=== PATIENT | female | born 1995 | race American Indian/Alaskan Native ===

== ENCOUNTER 2021-10-23 08:08 | Emergency (ER) | payer SELFPAY ==
[2021-10-23 08:12] VITALS: BP 128/38
--- NOTE | 2021-10-23 10:07 | Emergency Department Report ---
ED General Adult HPI - General Chief complaint: Upper Respiratory Infection Stated complaint: COUGH Time Seen by Provider: 10/23/21 09:59 Source: patient Mode of arrival: Ambulatory Limitations: No Limitations - History of Present Illness Initial comments: 36-year-old -Turk[place] female presents with complaints of cough x1 week. She states the cough is productive of yellow sputum, but denies any hemoptysis or shortness of breath. She also denies any chest pain and states she is vaccinated against COVID-19. No recent long travel, leg pain/swelling, hormone use, or history of DVT/PE/cancer. Patient states symptoms improved with Delsym. No loss of taste or smell per patient. She also denies any other past medical history ED Review of Systems ROS: Stated complaint: COUGH Other details as noted in HPI Constitutional: denies: chills, diaphoresis, fever, malaise Respiratory: cough. denies: shortness of breath Cardiovascular: denies: chest pain Gastrointestinal: denies: vomiting Neurological: denies: headache ED Physical Exam - General Limitations: No Limitations General appearance: alert, in no apparent distress - Head Head exam: Present: atraumatic, normocephalic - Eye Eye exam: Present: normal appearance. Absent: scleral icterus - Respiratory Respiratory exam: Present: normal lung sounds bilaterally, respiratory distress. Absent: wheezes, rales, rhonchi, stridor - Cardiovascular Cardiovascular Exam: Present: regular rate, normal rhythm - Extremities Exam Extremities exam: Absent: calf tenderness - Neurological Exam Neurological exam: Present: alert, oriented X3 - Psychiatric Psychiatric exam: Present: normal affect, normal mood - Skin Skin exam: Present: warm, dry, intact, normal color. Absent: rash ED Course Vital Signs 10/23/21 08:11 Temperature 98.6 F Pulse Rate 96 H Respiratory 16 Rate Blood Pressure 128/38 [Right] O2 Sat by Pulse 98 Oximetry ED Medical Decision Making - Medical Decision Making Lungs are clear to auscultation bilaterally on exam. Vitals are normal. Patient continues to deny any shortness of breath or chest pain. Suspect viral respiratory infection. Recommend continuation of Delsym in addition of vitamin C, zinc, increase water intake, and Claritin. She is to follow-up with primary care in 3 to 5 days and receive a COVID-19 test within the next 24 to 48 hours and self quarantine until her results are back. Patient is stable for discharge home. Strict return precautions were discussed in detail with patient who verbalizes understanding Critical care attestation.: If time is entered above; I have spent that time in minutes in the direct care of this critically ill patient, excluding procedure time. ED Disposition Clinical Impression: Viral URI with cough Disposition: HOME / SELF CARE / HOMELESS Is pt being admited?: No Condition: Stable Instructions: Viral Respiratory Infection, [id number] Forms: Work/School Release Form(ED)
== END 2021-10-23 10:43 | disposition home or self-care (01) ==
LOC: ED 08:08
DX: J06.9 Acute upper respiratory infection, unspecified (principal)
CPT/HCPCS: 99281